=== PATIENT | male | born 1945 | race Caucasian/White ===

== ENCOUNTER 2018-11-02 08:48 | Day surgery (SDC) | payer MEDICARE ==
[2018-10-27 11:36] VITALS: BMI 28.0
[~2018-11-02 08:48] MED LIST: LACTATED RINGERS 1,000 ML IV SCH
[2018-11-02 10:03] VITALS: RESP 16; TEMP 98
[2018-11-02] MEDS ORDERED: LIDOCAINE 1% 20 ML VIAL (10MG/ML) FOR IV START INTRADERMA ONE (10:08)
[2018-11-02] MEDS ORDERED: PROPOFOL 10 MG/ML 20 ML VIAL IV ONE (10:26)
[2018-11-02] MEDS ORDERED: MIDAZOLAM 2 MG/2 ML VIAL ONE (10:26)
--- NOTE | 2018-11-02 10:59 | P.PCN ---
Date of Procedure: 11/02/18 Procedure(s) Performed: BRIEF HISTORY: Patient is a 73-year-old pleasant male, scheduled for an elective colonoscopy as a part of screening for colorectal neoplasia. PROCEDURE PERFORMED: Colonoscopy with snare polypectomy. PREOPERATIVE DIAGNOSIS: Screening for colon cancer. IV sedation per Anesthesia. PROCEDURE: After informed consent was obtained, the patient, was brought into the endoscopy unit. IV sedation was administered by Anesthesia under continuous monitoring. Digital rectal examination was normal. Initially the Olympus CF-160 flexible video colonoscope was then inserted in the rectum, gradually advanced into the cecum without any difficulty. Careful examination was performed as the scope was gradually being withdrawn. Ileocecal valve and the appendiceal orifice were visualized and appeared normal. Prep was excellent. Mucosa of the cecum appeared normal. Ascending colon there was a 1 cm broad-based polyp that was removed by snare polypectomy. Rest of the, ascending colon, transverse colon, descending colon, sigmoid colon, and rectum appeared normal. Retroflexion was performed in the rectum and no lesions were seen. The patient tolerated the procedure well. IMPRESSION: 1 cm broad-based ascending colon polyp status post polypectomy Rest of the colon appeared normal RECOMMENDATIONS: Findings of this examination were discussed with the patient as well as his family. He was advised to follow with the biopsy results. If the biopsy shows an adenoma, he can have a repeat colonoscopy in 3 years.
[2018-11-02 11:01] VITALS: BP 131/90; PULSE 89
== END 2018-11-02 11:15 | disposition home or self-care (01) ==
LOC: ORWHC2ENDO 08:48
PROVIDERS: ATTEND Internal Medicine Gastroenterology
DX: Z12.11 Encounter for screening for malignant neoplasm of colon (principal); D12.2 Benign neoplasm of ascending colon; I10 Essential (primary) hypertension; J45.909 Unspecified asthma, uncomplicated; E78.5 Hyperlipidemia, unspecified; K21.9 Gastro-esophageal reflux disease without esophagitis; M19.90 Unspecified osteoarthritis, unspecified site; Z85.828 Personal history of other malignant neoplasm of skin; Z79.51 Long term (current) use of inhaled steroids; Z79.82 Long term (current) use of aspirin; Z79.899 Other long term (current) drug therapy; Z91.018 Allergy to other foods; Z91.09 Other allergy status, other than to drugs and biological substances; Z98.890 Other specified postprocedural states; Z80.9 Family history of malignant neoplasm, unspecified
CPT/HCPCS: 88305; 45385; J2250; J2704

== ENCOUNTER → 2023-10-12 | Outpatient (CLI) | payer MEDICARE ==
--- NOTE | 2023-10-12 15:23 | XR ---
EXAMINATION TYPE: XR finger or thumb bilateral DATE OF EXAM: 10/12/2023 COMPARISON: NONE HISTORY: Pain TECHNIQUE: 4 views submitted. FINDINGS: Mild first MCP joint arthropathy. Osseous structures intact. Degenerative change. No acute fracture. No dislocation. IMPRESSION: Mild first MCP joint arthropathy. No erosive changes.
--- NOTE | 2023-10-12 15:25 | XR ---
EXAMINATION TYPE: XR toes bilateral DATE OF EXAM: 10/12/2023 COMPARISON: NONE HISTORY: Pain TECHNIQUE: 2 views of the bilateral toes are submitted. FINDINGS: There is moderate to severe right and moderate left MTP joint arthropathy. No erosive changes. Bilate ral subtle hallux valgus deformity. No evidence of acute fracture or dislocation bilaterally. Hammertoe deformities of the second through fifth digits bilaterally. Vascular calcifications noted. IMPRESSION: 1. 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 No erosive changes.
== END | disposition home or self-care (01) ==
LOC: RADXRYALE 14:22
PROVIDERS: ATTEND Nurse Practitioner Family
DX: M12.842 Other specific arthropathies, not elsewhere classified, left hand (principal); M12.841 Other specific arthropathies, not elsewhere classified, right hand; M12.872 Other specific arthropathies, not elsewhere classified, left ankle and foot; M12.871 Other specific arthropathies, not elsewhere classified, right ankle and foot

== ENCOUNTER → 2024-09-15 | Outpatient (CLI) | payer MEDICARE ==
--- NOTE | 2024-09-15 15:25 | MR ---
INDICATION: Patient age:Male; 79 years old; Reason for study: R51.9 HEADACHE, UNSPECIFIED; [facility]. COMPARISON: CT brain 03/06/2011. TECHNIQUE: Multi planar, multi sequence imaging was performed through the brain. The patient was then given 8.5 cc of Gadobutrol intravenously and multi planar, T1 fat-saturation images were obtained. FINDINGS: The granger-white junctions, ventricular system, basal cisterns appear unremarkable. Age-appropriate mil d cerebral atrophy. Diffusion-weighted imaging shows no evidence of restricted diffusion to suggest a cute/subacute infarct. Intracranial arterial flow voids are maintained. Midline structures show no ab normality. Few patchy foci of high T2/FLAIR signal intensity are seen within the periventricular and subcortical white matter. The susceptibility weighted images demonstrate a single focus of blooming a rtifact within the left cerebellum consistent with prior microhemorrhage. After administration of antony olinium, no abnormal enhancement is seen. The bone marrow signal is within normal limits. Bilateral aphakia. Mild mucosal thickening of the et hmoid sinuses. Air-fluid level within the left sphenoid sinus. Nasal septal deviation to the left. IMPRESSION: 1. No evidence of intracranial mass, acute/subacute infarct, or abnormal enhancement. 2. Nonspecific and additional white matter changes, likely related to small vessel ischemic disease. 3. Paranasal sinus disease with air-fluid level within the left maxillary sinus. Correlate clinically for acute sinusitis. [facility], , 09/15/2024 3:23 PM
== END | disposition home or self-care (01) ==
LOC: RADMRIMAIN 14:32
PROVIDERS: ATTEND Student in an Organized Health Care Education/Training Program
DX: R90.82 White matter disease, unspecified (principal); J34.89 Other specified disorders of nose and nasal sinuses; J34.2 Deviated nasal septum
CPT/HCPCS: 70553; A9585

== ENCOUNTER → 2024-10-03 | Outpatient (CLI) | payer MEDICARE ==
--- NOTE | 2024-10-03 13:27 | US ---
EXAMINATION TYPE: US carotid duplex BILAT DATE OF EXAM: 10/03/2024 COMPARISON: NONE CLINICAL INDICATION: Male, 79 years old with history of R42 DIZZINESS R51.9 DAILY HEADACHE; Pressure headaches off and on Additional History: .... TECHNIQUE: Grayscale, color Doppler and spectral Doppler evaluation of the bilateral carotid systems and vertebral arteries. Indirect Doppler criteria was utilized. FINDINGS: EXAM MEASUREMENTS: RIGHT: Peak Systolic Velocity (PSV) cm/sec ----- Right CCA: 62.4 ----- Right ICA: 62.3 ----- Right ECA: 93.9 ICA/CCA ratio: 1.0 RIGHT: End Diastole cm/sec ----- Right CCA: 12.5 ----- Right ICA: 19.6 ----- Right ECA: 11.1 LEFT: Peak Systolic Velocity (PSV) cm/sec ----- Left CCA: 68.3 ----- Left ICA: 76.4 ----- Left ECA: 88.8 ICA/CCA ratio: 1.1 LEFT: End Diastole cm/sec ----- Left CCA: 22.9 ----- Left ICA: 26.5 ----- Left ECA: 0.0 VERTEBRALS (direction of flow): Right Vertebral: Antegrade Left Vertebral: Antegrade Rhythm: Normal HAND SUTURE WINDER NOTES: Mild plaque seen at the bulb bilaterally. Color Doppler imaging shows patency with blood flow throughout the carotid artery. Spectral waveforms are within normal limits. IMPRESSION: Right: Less than 50% stenosis of the carotid bifurcation. Left: Less than 50% stenosis of the carotid bifurcation. Criteria for Assigning % of Stenosis / Diameter reduction (Estimation based on the indirect measurements of the internal carotid artery velocities (ICA PSV). 1. Normal (no stenosis)=ICA PSV < 180 cm/s: ratio < 2.0: ICA EDV<40 cm/s. 2. Less than 50% stenosis=ICA PSV < 180 cm/s: ratio < 2.0: ICA EDV<40 cm/s. 3. 50 to 69% stenosis=ICA PSV of 180 to 230 cm/s: ration 2.0 ? 4.0: ICA EDV 40-100 cm/s. PSV 125-180 cm/sec and ICA/CCA PSV Ratio ? 2.0 is also consistent with 50-69% stenosis 4. Greater than 70% stenosis to near occlusion= ICA PSV > 230 cm/s: ratio > 4.0: ICA EDV > 100 cm/s. 5. Near occlusion= ICA PSV velocities may be low or undetectable: variable ratio and ICA EDV. 6. Total occlusion=unable to detect flow. [facility], , 10/03/2024 1:25 PM
== END | disposition home or self-care (01) ==
LOC: RADUSWWP 12:16
PROVIDERS: ATTEND Student in an Organized Health Care Education/Training Program
DX: I65.23 Occlusion and stenosis of bilateral carotid arteries (principal); R42 Dizziness and giddiness; R51.9 Headache, unspecified
CPT/HCPCS: 93880